=== PATIENT | male | born 1945 | race Caucasian/White ===

== ENCOUNTER 2016-09-17 08:10 | Day surgery (SDC) | payer MEDICARE, OTHER ==
--- NOTE | 2016-09-17 10:51 | Operative Note ---
DATE OF SURGERY: 09/17/2016. REFERRING PHYSICIAN: Gino Grier D.O. PROCEDURE: Colonoscopy to the cecum with cold-snare polypectomy times one and cold biopsy forceps polypectomy times three. INDICATION: Colorectal cancer screening. ANESTHESIA: Intravenous sedation was administered by the Department of Anesthesiology and included Diprivan titrated to effect. PROCEDURE: Following informed consent from this alert individual, including a discussion of the risks and benefits of the procedure and an opportunity for the patient to ask questions, the patient was in the left lateral decubitus position. A digital rectal examination was performed. No masses were noted. Following this, the Olympus PCF-180 video colonoscope was inserted into the rectum without resistance. The rectal mucosa had a normal appearance with normal folds and distensibility. The colonoscope was advanced up through the colon to the level of the cecum without much difficulty. The colon preparation was fair. With some washing and suctioning the preparation became adequate. The cecum was defined by noting the ileocecal valve and the cecal pouch. There was some retained liquid stool in the cecum, most of which could be suctioned through the endoscope. No polyps or tumors were noted, although the cecal base was coated with a small amount of stool. From this point the colonoscope was then withdrawn. There was a 5.0 mm polyp noted in the sigmoid colon which was removed with cold-snare polypectomy. There were three diminutive polyps noted on the rectum removed with cold biopsy forceps. Retroflexion in the rectum revealed internal hemorrhoids which were small to moderate in size. No other mucosal changes were appreciated. The endoscope was withdrawn. The patient tolerated the procedure well and was returned to the recovery area in stable condition. IMPRESSION: 1. A 5.0 MM SIGMOID POLYP REMOVED WITH COLD-SNARE POLYPECTOMY. 2. THREE DIMINUTIVE 3.0 MM POLYPS REMOVED FROM THE RECTUM WITH BIOPSY FORCEPS. 3. INTERNAL HEMORRHOIDS. 4. FAIR TO GOOD COLON PREPARATION. RECOMMENDATIONS: Further recommendations will be forthcoming pending the results of the pathology obtained today. I would recommend a repeat colonoscopy in five years ' time for polyp surveillance and in light of the preparation today. LEONARD WALLER D.O. Date Time JOB NUMBER: [id number] cc: Andreea Joiner
[2016-09-17] MEDS ORDERED: PROPOFOL 10 MG/ML VIAL IV ONE (14:37)
[2016-09-17] MEDS ORDERED: MIDAZOLAM HCL 2MG/2ML VIAL IV ONE (14:37)
[2016-09-17] MEDS ORDERED: LIDOCAINE 2% MDV (20MG/ML) 20ML VIAL IV ONE (14:37)
== END 2016-09-17 10:08 | disposition home or self-care (01) ==
LOC: HOP 08:10
PROVIDERS: ATTEND Internal Medicine Gastroenterology
DX: Z12.11 Encounter for screening for malignant neoplasm of colon (principal); D12.5 Benign neoplasm of sigmoid colon; K62.1 Rectal polyp; I10 Essential (primary) hypertension; E78.00 Pure hypercholesterolemia, unspecified